=== PATIENT | male | born 1980 | race African-American/Black ===

== ENCOUNTER 2018-08-24 04:56 | Emergency (ER) | payer MEDICAID, OTHER ==
[~2018-08-24] VITALS: Ht 175.3 cm; Wt 63.5 kg
[2018-08-24 04:59] VITALS: BP 117/72
== END 2018-08-24 06:09 | disposition home or self-care (01) ==
LOC: ER 04:58
DX: A63.0 Anogenital (venereal) warts (principal); J45.909 Unspecified asthma, uncomplicated; F17.200 Nicotine dependence, unspecified, uncomplicated; Z60.2 Problems related to living alone
CPT/HCPCS: Z7502

== ENCOUNTER 2019-07-18 18:45 | Emergency (ER) | payer OTHER ==
[~2019-07-18] VITALS: Ht 175.3 cm; Wt 63.5 kg
[2019-07-18 18:45] VITALS: BP 128/100
[2019-07-18] MEDS ORDERED: KETOROLAC TROMETHAMINE INJ 30 MG/ML VIAL ONE (19:16)
[2019-07-18] MEDS ORDERED: SILVER SULFADIAZINE CREAM 25 GM TUBE ONE (19:16)
--- NOTE | 2019-07-18 19:26 | NUR ---
Patient discharged to home in stable condition. Written and verbal after care instructions given. Patient verbalizes understanding of instruction.IV removed. Catheter intact and site benign. Pressure and 4x4 applied to site. No bleeding noted.Pt ambulatory with a steady gait
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
[2019-07-18] MEDS ORDERED: SILVER SULFADIAZINE 50 GM JAR TP PRN (19:30)
[2019-07-18] MEDS ORDERED: KETOROLAC TROMETHAMINE INJ 60 MG/2 ML VIAL IM ONE (19:30)
== END 2019-07-18 19:27 | disposition home or self-care (01) ==
LOC: ER 18:50
DX: T23.222A Burn of second degree of single left finger (nail) except thumb, initial encounter (principal); R00.0 Tachycardia, unspecified; J45.909 Unspecified asthma, uncomplicated; Z60.2 Problems related to living alone; X08.8XXA Exposure to other specified smoke, fire and flames, initial encounter; Y93.89 Activity, other specified; Y92.89 Other specified places as the place of occurrence of the external cause; Y99.8 Other external cause status
CPT/HCPCS: J1885

== ENCOUNTER 2024-01-03 01:04 | Inpatient (IN) | payer OTHER ==
[~2024-01-03] VITALS: Ht 175.3 cm; Wt 54.0 kg
[2024-01-03] MEDS ORDERED: PIPERACI/TAZO 3.375GM/D5W 50ML PB IV ONE (01:14)
[2024-01-03] MEDS: IV NS 0.9% 1,000 ML BAG IV ONE (01:32)
[2024-01-03] MEDS: PIPERACILLIN /TAZOBACTAM 3.375 G in IV D5W 50 ML IV ONE (01:33)
[2024-01-03 01:36] LABS: BASOPHILS % (AUTO) 0.3 % (0.0-2.0); EOSINOPHILS % (AUTO) 0.6 % (0.0-6.0); HEMATOCRIT 24 % (39-51); HEMOGLOBIN 7.8 g/dL (13.5-17.5); LYMPHOCYTES % (AUTO) 11.7 % (20.0-44.0); MEAN CORPUSCULAR HEMOGLOBIN 30 PG (26.0-33.0); MEAN CORPUSCULAR HGB CONC 33 g/dl (31.0-36.0); MEAN CORPUSCULAR VOLUME 91 fL (80-96); MONOCYTES # (AUTO) 0.7 K/uL (0.1-1.30); MONOCYTES % (AUTO) 8.4 % (2.0-12.0); NEUTROPHILS # (AUTO) 6.6 K/uL (1.8-8.9); PLATELET COUNT (AUTO) 443 K/uL (150-450); RED BLOOD CELL COUNT(AUTO) 2.61 MIL/uL (4.5-6.0); RED CELL DISTRIBUTION WIDTH 16.1 % (11.5-15.0); WHITE BLOOD COUNT (AUTO) 8.3 K/uL (4.3-11.0)
[2024-01-03 01:44] LABS: CALCIUM, SERUM 8.3 mg/dL (8.5-10.1); CARBON DIOXIDE 29 mmol/L (21-32); CHLORIDE 100 mmol/L (98-107); CREATININE 0.8 mg/dL (0.6-1.3); GLUCOSE 98 mg/dL (74-106); POTASSIUM 4.2 mmol/L (3.5-5.1); SODIUM SERUM 134 mmol/L (136-145); UREA NITROGEN, BLOOD 6 mg/dL (7-18)
[2024-01-03 01:50] LABS: ALANINE AMINOTRANSFERASE 17 U/L (12-78); ALBUMIN 1.6 g/dL (3.4-5.0); ALKALINE PHOSPHATASE 69 U/L (46-116); ASPARTATE AMINOTRANSFERASE 23 U/L (15-37); BILIRUBIN,DIRECT 0.1 mg/dL (0.0-0.2); BILIRUBIN,TOTAL 0.1 mg/dL (0.2-1.0); INR 1.07 (0.91-1.10); PARTIAL THROMBOPLASTIN TIME 28.8 SEC (24.3-34.3); PROTHROMBIN TIME 11.3 SECS (9.2-11.1); TOTAL PROTEIN, SERUM 9.7 g/dL (6.4-8.2)
[2024-01-03 01:55] LABS: LACTIC ACID 1.7 mmol/L (0.4-2.0)
[2024-01-03] MEDS ORDERED: ACETAMINOPHEN ES 500 MG TABLET ONE (02:18)
[2024-01-03] MEDS ORDERED: IBUPROFEN 600 MG TABLET ONE (02:19)
[2024-01-03] MEDS: ACETAMINOPHEN ES 500 MG TABLET PO ONE (02:19)
[2024-01-03] MEDS: IBUPROFEN 600 MG TABLET PO ONE (02:19)
[2024-01-03 02:23] LABS: APPEARANCE,URINE CLEAR (CLEAR); BILIRUBIN,URINE NEGATIVE (NEGATIVE); BLOOD, URINE 2+ Ery/uL (NEGATIVE); COLOR,URINE YELLOW (YELLOW); KETONES,URINE NEGATIVE (NEGATIVE); LEUKOCYTE ESTERASE ,URINE NEGATIVE (NEGATIVE); NITRITE, URINE NEGATIVE (NEGATIVE); PH,URINE 7.5 (5.0-8.0); PROTEIN,URINE NEGATIVE (NEGATIVE); UGLUCOSE NEGATIVE (NEGATIVE)
[2024-01-03 02:44] LABS: AMPHETAMINE, URINE NEGATIVE (NEGATIVE); BARBITURATE, URINE NEGATIVE (NEGATIVE); BENZODIAZEPINE, URINE NEGATIVE (NEGATIVE); CANNABINOID, URINE NEGATIVE (NEGATIVE); COCCAINE, URINE NEGATIVE (NEGATIVE); OPIATE, URINE NEGATIVE (NEGATIVE); PHENCYCLIDINE SCREEN,URINE NEGATIVE (NEGATIVE)
[2024-01-03 02:54] LABS: ADD URINE CULTURE NO; BACTERIA,URINE None seen /HPF (None Seen); SQUAMOUS EPITHELIAL CELL,UR None Seen /HPF (None Seen); WBC,URINE NONE SEEN /HPF (0-3)
[2024-01-03] MEDS ORDERED: IV NS 0.9% 250 ML IV ONE (03:00)
[2024-01-03] MEDS ORDERED: CT SWABBABLE VALVE TRANS SET 1 EA INFUS.SET MC ONE (03:00)
[2024-01-03] MEDS ORDERED: IOHEXOL-350 100 ML VIAL IV ONE (03:00)
[2024-01-03] MEDS ORDERED: MAG HYDROX/AL HYDROX/SIMETH 30 ML UDC PO PRN (04:00)
[2024-01-03] MEDS ORDERED: MAGNESIUM HYDROXIDE 30 ML UDC PO PRN (04:00)
[2024-01-03] MEDS ORDERED: Z GUARD REMEDY 4 OZ OINT TP PRN (04:00)
[2024-01-03] MEDS ORDERED: TEMAZEPAM 15 MG CAPSULE PO PRN (04:00)
[2024-01-03] MEDS ORDERED: ACETAMINOPHEN 325 MG TABLET PO PRN (04:00)
[2024-01-03 05:24] VITALS: BP 91/55; TEMP 98.4; O2SAT 96
[2024-01-03 05:32] LABS: LYMPHOCYTES % (MANUAL) 14 % (16-48); MONOCYTES % (MANUAL) 10 % (0-11.0); NEUTROPHILS % (MANUAL) 76 (42-76)
[2024-01-03 05:33] LABS: PLATELET ESTIMATE ADEQUATE
[2024-01-03] MEDS ORDERED: AZITHROMYCIN 500 MG VIAL ONE (05:58)
[2024-01-03] MEDS: AZITHROMYCIN 500 MG in IV D5W 250 ML IV ONE (06:09)
[2024-01-03 08:00] VITALS: BP 86/60; TEMP 97.5; O2SAT 98
[2024-01-03] MEDS: PANTOPRAZOLE 40 MG TABLET.DR PO SCH (08:20)
[2024-01-03] MEDS: CEFEPIME 2 GM in IV D5W 100 ML IV SCH (08:38)
[2024-01-03] MEDS ORDERED: CEFEPIME 1 GM in IV D5W 50 ML IV SCH (09:00)
[2024-01-03 12:00] VITALS: BP 93/57; TEMP 97.7; O2SAT 97
[2024-01-03 16:00] VITALS: BP 91/67; TEMP 97.9; O2SAT 98
[2024-01-03] MEDS: HYDROCODONE/APAP 5/325MG TABLET PO PRN (16:24)
[2024-01-03 20:00] VITALS: BP 95/69; TEMP 98.6; O2SAT 98
[2024-01-04 00:31] VITALS: BP 90/68; TEMP 98; O2SAT 98
[2024-01-04 05:05] VITALS: BP 100/68; TEMP 98.9; O2SAT 97
[2024-01-04 08:00] VITALS: BP 91/65; TEMP 98.1; O2SAT 95
[2024-01-04] MEDS: AZITHROMYCIN 500 MG in IV D5W 250 ML IV SCH (09:51)
[2024-01-04 10:56] LABS: BASOPHILS % (AUTO) 0.3 % (0.0-2.0); EOSINOPHILS # (AUTO) 0.1 K/uL (0.0-0.7); EOSINOPHILS % (AUTO) 2.2 % (0.0-6.0); HEMATOCRIT 25 % (39-51); HEMOGLOBIN 8.2 g/dL (13.5-17.5); LYMPHOCYTES # (AUTO) 0.7 K/uL (0.8-4.8); LYMPHOCYTES % (AUTO) 12.1 % (20.0-44.0); MEAN CORPUSCULAR HEMOGLOBIN 30 PG (26.0-33.0); MEAN CORPUSCULAR HGB CONC 33 g/dl (31.0-36.0); MEAN CORPUSCULAR VOLUME 92 fL (80-96); MONOCYTES # (AUTO) 0.5 K/uL (0.1-1.30); MONOCYTES % (AUTO) 7.7 % (2.0-12.0); NEUTROPHILS # (AUTO) 4.6 K/uL (1.8-8.9); NEUTROPHILS % (AUTO) 77.7 % (43.0-81.0); PLATELET COUNT (AUTO) 458 K/uL (150-450); RED CELL DISTRIBUTION WIDTH 15.9 % (11.5-15.0); WHITE BLOOD COUNT (AUTO) 5.9 K/uL (4.3-11.0)
[2024-01-04 11:37] LABS: CALCIUM, SERUM 7.6 mg/dL (8.5-10.1); CREATININE 0.7 mg/dL (0.6-1.3); MAGNESIUM 1.6 mg/dL (1.8-2.4); PHOSPHORUS 2.8 mg/dL (2.5-4.9); POTASSIUM 4.1 mmol/L (3.5-5.1)
[2024-01-04 11:49] LABS: THYROID STIMULATING HORMONE 0.63 uIU/mL (0.358-3.74)
[2024-01-04 12:00] VITALS: BP 90/67; TEMP 97.8; O2SAT 95
[2024-01-04] MEDS: Magnesium 1GM/D5W 100ML PREMIX 100 ML IV SCH (15:28)
[2024-01-04 16:00] VITALS: BP 106/59; TEMP 98.9; O2SAT 95
[2024-01-04 20:00] VITALS: BP 96/61; TEMP 98.2; O2SAT 97
[2024-01-05] VITALS: BP 105/64; TEMP 98.1; O2SAT 97
[2024-01-05 04:00] VITALS: BP 103/65; TEMP 98.1; O2SAT 97
[2024-01-05 08:00] VITALS: BP 97/60; TEMP 98.2; O2SAT 98
[2024-01-05] MEDS: ESCITALOPRAM OXALATE (10 MG) 10 MG TABLET PO SCH (09:23)
[2024-01-05 11:28] LABS: BASOPHILS % (AUTO) 0.3 % (0.0-2.0); EOSINOPHILS # (AUTO) 0.1 K/uL (0.0-0.7); EOSINOPHILS % (AUTO) 1.4 % (0.0-6.0); HEMATOCRIT 26 % (39-51); HEMOGLOBIN 8.5 g/dL (13.5-17.5); LYMPHOCYTES # (AUTO) 0.8 K/uL (0.8-4.8); LYMPHOCYTES % (AUTO) 11.2 % (20.0-44.0); MEAN CORPUSCULAR HEMOGLOBIN 30 PG (26.0-33.0); MEAN CORPUSCULAR HGB CONC 33 g/dl (31.0-36.0); MEAN CORPUSCULAR VOLUME 92 fL (80-96); MONOCYTES # (AUTO) 0.7 K/uL (0.1-1.30); MONOCYTES % (AUTO) 10.2 % (2.0-12.0); NEUTROPHILS # (AUTO) 5.6 K/uL (1.8-8.9); NEUTROPHILS % (AUTO) 76.9 % (43.0-81.0); PLATELET COUNT (AUTO) 545 K/uL (150-450); RED CELL DISTRIBUTION WIDTH 15.8 % (11.5-15.0); WHITE BLOOD COUNT (AUTO) 7.3 K/uL (4.3-11.0)
[2024-01-05 11:59] LABS: CALCIUM, SERUM 8.1 mg/dL (8.5-10.1); CREATININE 0.7 mg/dL (0.6-1.3); MAGNESIUM 1.9 mg/dL (1.8-2.4); POTASSIUM 4.1 mmol/L (3.5-5.1)
[2024-01-05] MEDS: ONDANSETRON HCL/PF 4 MG/2 ML VIAL IVP PRN (12:45)
[2024-01-05 14:04] VITALS: BP 100/62; TEMP 98; O2SAT 97
[2024-01-05] MEDS: GUAIFENESIN/CODEINE 10 ML UDC PO PRN (20:19)
[2024-01-05 21:00] VITALS: BP 99/64; TEMP 98.1; O2SAT 97
[2024-01-06 05:00] VITALS: BP 101/65; TEMP 98; O2SAT 95
[2024-01-06 08:04] LABS: BASOPHILS % (AUTO) 0.3 % (0.0-2.0); EOSINOPHILS # (AUTO) 0.2 K/uL (0.0-0.7); EOSINOPHILS % (AUTO) 2.4 % (0.0-6.0); HEMATOCRIT 24 % (39-51); HEMOGLOBIN 8.2 g/dL (13.5-17.5); LYMPHOCYTES # (AUTO) 0.7 K/uL (0.8-4.8); LYMPHOCYTES % (AUTO) 9.1 % (20.0-44.0); MEAN CORPUSCULAR HEMOGLOBIN 30 PG (26.0-33.0); MEAN CORPUSCULAR HGB CONC 34 g/dl (31.0-36.0); MEAN CORPUSCULAR VOLUME 90 fL (80-96); MONOCYTES # (AUTO) 0.8 K/uL (0.1-1.30); MONOCYTES % (AUTO) 10.8 % (2.0-12.0); NEUTROPHILS # (AUTO) 5.7 K/uL (1.8-8.9); NEUTROPHILS % (AUTO) 77.4 % (43.0-81.0); PLATELET COUNT (AUTO) 505 K/uL (150-450); RED BLOOD CELL COUNT(AUTO) 2.69 MIL/uL (4.5-6.0); WHITE BLOOD COUNT (AUTO) 7.4 K/uL (4.3-11.0)
[2024-01-06 08:16] LABS: CALCIUM, SERUM 8.4 mg/dL (8.5-10.1); CREATININE 0.8 mg/dL (0.6-1.3); MAGNESIUM 1.9 mg/dL (1.8-2.4); PHOSPHORUS 3.6 mg/dL (2.5-4.9); POTASSIUM 4.5 mmol/L (3.5-5.1)
[2024-01-06 10:07] LABS: *BASOS 0 % (Not Estab.); *COMMENTS Note: (.); *EOS 0 % (Not Estab.); *HCT 25.4 % (37.5-51.0); *HGB 8.3 g/dL (13.0-17.7); *LYMPHOCYTES 7 % (Not Estab.); *LYMPHS, ABSOLUTE 0.6 x10E3/uL (0.7-3.1); *MCH 30.1 pg (26.6-33.0); *MCHC 32.7 g/dL (31.5-35.7); *MCV 92 fL (79-97); *MONOCYTES 10 % (Not Estab.); *MONOS, ABSOLUTE 0.8 x10E3/uL (0.1-0.9); *NEUTROPHILS 81 % (Not Estab.); *NEUTROPHILS, ABSOLUTE 6.8 x10E3/uL (1.4-7.0); *NRBC 1 % (0 - 0); *PLT 507 x10E3/uL (150-450); *RBC 2.76 x10E6/uL (4.14-5.80); *RDW 14.6 % (11.6-15.4); *WBC 8.4 x10E3/uL (3.4-10.8)
[2024-01-06 13:00] VITALS: BP 103/65; TEMP 98.2; O2SAT 97
[2024-01-06 13:09] LABS: *% CD 4 POS. LYMPH 9.7 % (30.8-58.5); *% CD 8 POS. LYMPH 56.6 % (12.0-35.5); *ABSOLUTE CD 4 HELPER 58 /uL (359-1519); *ABSOLUTE CD 8 SUPPRESSOR 340 /uL (109-897); *CD4/CD8 RATIO 0.17 (0.92-3.72)
[2024-01-06] MEDS: EMTRICITABINE/TENOFOVIR 1 TAB PO SCH (18:02)
[2024-01-06] MEDS: ACYCLOVIR 800 MG TABLET PO SCH (18:03)
[2024-01-06] MEDS: FLUCONAZOLE (100 MG) 100 MG TABLET PO SCH (18:05)
[2024-01-06] MEDS: SULFAMETH/TRIMETH 800/160 MG 1 UDTAB TABLET PO SCH (18:05)
[2024-01-06] MEDS: EFAVIRENZ 600 MG TABLET PO SCH (20:35)
[2024-01-06 21:00] VITALS: BP 96/62; TEMP 98.1; O2SAT 95
[2024-01-07 05:00] VITALS: BP 96/65; TEMP 98.2; O2SAT 95
[2024-01-07 08:00] VITALS: BP 90/70; TEMP 97.5; O2SAT 94
[2024-01-07 20:09] LABS: *MYCOPLASMA PNEUMONIAE IgG 719 U/mL (0-99); *MYCOPLASMA PNEUMONIAE IgM <770 U/mL (0-769)
== END 2024-01-07 16:57 | disposition home or self-care (01) | DRG 892 ==
LOC: ER 01:06 → MEDSG1 03:59 → TELE1 04:56 → MEDSG1 01-05 09:48
PROVIDERS: ADMIT Nurse Practitioner Family; ATTEND Internal Medicine
DX: J15.9 Unspecified bacterial pneumonia (principal); B20 Human immunodeficiency virus [HIV] disease; R09.1 Pleurisy; E43 Unspecified severe protein-calorie malnutrition; R64 Cachexia; E87.1 Hypo-osmolality and hyponatremia; E88.09 Other disorders of plasma-protein metabolism, not elsewhere classified; M94.0 Chondrocostal junction syndrome [Tietze]; D64.9 Anemia, unspecified; E83.42 Hypomagnesemia; F32.9 Major depressive disorder, single episode, unspecified; F41.9 Anxiety disorder, unspecified; Z59.00 Homelessness unspecified; J45.909 Unspecified asthma, uncomplicated
CPT/HCPCS: 36415; 71045-TC; 80048-TC; 80061-TC; 80076-TC; 81001; 82607-TC; 82728-TC; 83540-TC; 83605-TC; 83735-TC; 84100-TC; 84443-TC; 84484-TC; 85025-TC; 85378-TC; 85730-TC; 86360; 86713; 86738; 87040-TC; 87899; 93307-TC; A4223; G0378; G0480; J0456; J0692; J2405; J2543; J3475; J7030; J7050; J7060; Q9967